=== PATIENT | female | born 1995 | race African-American/Black ===

== ENCOUNTER 2016-12-21 16:05 | Emergency (ER) | payer BC, OTHER ==
[2016-12-21] MEDS ORDERED: Morphine 10 MG/ML VIAL ONE ×3 (17:24→18:17)
[2016-12-21] MEDS ORDERED: Ondansetron HCl/PF 4 MG/2 ML Vial ONE ×3 (17:24→18:17)
[2016-12-21 17:40] LABS: IRF 0.338 Ratio (0.163-0.362); Reticulocyte Count 7.7 % (0.5-1.5)
[2016-12-21 17:56] LABS: ALT (SGPT) 22 U/L (8-55); AST (SGOT) 24 U/L (5-34); Alkaline Phosphatase 46 U/L (40-150); Anion Gap 12 mmol/L (10-20); BUN (Urea Nitrogen) 6 mg/dL (7.0-18.7); Bilirubin, Total 2.5 mg/dL (0.2-1.2); Calc. Creatinine Clearance 0 mL/min (70-130); Calcium 9.5 mg/dL (7.8-10.44); Carbon Dioxide 24 mmol/L (22-29); Chloride 109 mmol/L (98-107); Estimated GFR-MDRD Greater than 90; Globulin 2.8 g/dL (2.4-3.5); Protein, Total 7.1 g/dL (6.0-8.3)
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
[2016-12-21 20:34] LABS: Hematocrit 30.5 % (36.0-47.0); Mean Platelet Volume 7.1 fL (7.4-10.4); Red Blood Cell (RBC) Count 2.84 mill/uL (4.20-5.40); White Blood Cell (WBC) Count 7.2 thou/uL (4.8-10.8)
[2016-12-21 20:55] LABS: Anisocytosis SLIGHT = 6-15 cells (100X) (0-5/hpf); Band 1 % (5-11); Hemoglobin C Crystals SLIGHT (None Seen); Macrocytosis SLIGHT = 6-15 cells (100X) (0-5/hpf); Neutrophil 48 % (42-75); Nucleated RBC 3 % (0); Polychromasia MODERATE = 3-4 cells (100X) (0-2/hpf); Sickle Cells SLIGHT = 1-5 cells (100X) (None Seen); Target Cells SLIGHT = 2-5 cells (100X) (0-1/hpf)
== END 2016-12-21 22:10 | disposition home or self-care (01) ==
LOC: ERS 16:05
DX: S39.012A Strain of muscle, fascia and tendon of lower back, initial encounter (principal); D57.1 Sickle-cell disease without crisis; V49.9XXA Car occupant (driver) (passenger) injured in unspecified traffic accident, initial encounter
CPT/HCPCS: 71020; 80053; 85025; 85046; 96361; 96374; J2270; J2405